=== PATIENT | female | born 2000 ===

== ENCOUNTER 2022-08-06 16:08 | Outpatient (CLI) | payer BC, SELFPAY ==
[2022-08-06 18:24] LABS: Cholesterol* 147 mg/dL (90-199)
[2022-08-06 18:25] LABS: Glucose* 74 mg/dL (60-115); HDL Cholesterol* 76 mg/dL (>=50); LDL Cholesterol Calculated 64 mg/dL (<100); Triglycerides* 33 mg/dL (40-149)
== END 2022-08-06 16:09 | disposition home or self-care (01) ==
PROVIDERS: Visit Provider Registered Nurse
DX: Z01.419 Encounter for gynecological examination (general) (routine) without abnormal findings (principal); R63.4 Abnormal weight loss; Z13.6 Encounter for screening for cardiovascular disorders; Z13.1 Encounter for screening for diabetes mellitus
CPT/HCPCS: 80061; 82947; 84443

== ENCOUNTER 2024-09-25 16:24 | Outpatient (CLI) | payer BC, SELFPAY | END 2024-09-25 16:25 | disposition home or self-care (01) | LOC: NFLDREF 16:24 | PROVIDERS: Visit Provider Registered Nurse | DX: Z11.3 Encounter for screening for infections with a predominantly sexual mode of transmission (principal) | CPT/HCPCS: 87491; 87591 ==

== ENCOUNTER 2025-05-24 11:15 | Outpatient (CLI) | payer BC, SELFPAY | END 2025-05-24 11:16 | disposition home or self-care (01) | LOC: NFLDREF 11:15 | PROVIDERS: Visit Provider Registered Nurse | DX: N92.6 Irregular menstruation, unspecified (principal) | CPT/HCPCS: 84443 ==